=== PATIENT | female | born 1990 | race Caucasian/White ===

== ENCOUNTER 2017-05-25 03:14 | Emergency (ER) | payer MEDICAID, OTHER ==
[~2017-05-25] VITALS: Ht 160 cm; Wt 68.0 kg
[2017-05-25] MEDS ORDERED: KETOROLAC 60MG/2ML VIAL IM ONE (07:30)
[2017-05-25 08:15] VITALS: BP 120/62
== END 2017-05-25 08:30 | disposition home or self-care (01) ==
LOC: ER 03:22
DX: K08.89 Other specified disorders of teeth and supporting structures (principal); F17.200 Nicotine dependence, unspecified, uncomplicated
CPT/HCPCS: 96372; 99283; J1885; Z7610